=== PATIENT | female | born 1960 | race Caucasian/White ===

== ENCOUNTER 2018-05-01 01:47 | Emergency (ER) | payer MEDICAID, OTHER ==
[~2018-05-01] VITALS: Ht 165.1 cm; Wt 77.1 kg
[2018-05-01 01:51] VITALS: BP 102/66
--- NOTE | 2018-05-01 01:55 | NUR ---
PT TAKEN TO BED 3
--- NOTE | 2018-05-01 02:05 | NUR ---
BIB SELF C/O LEFT SHOULDER PAIN. PT STATES TO INJURING HER LEFT SHOULDER 2 YEARS AGO AT WORK, IS HAVING SURGERY 05/10/18, PASSIVE ROM. SHARP PAIN 12/15 X2 DAYS. --RIGHT SHOULDER: NO REDNESS OR SWELLING NOTED, SLIGHT DEFORMITY NOTED. --RADIAL PULSES +3 EQUAL BILATERALLY. DENIES TRAUMA OR FALL. DENIES LOC, SOB, OR CP. --SKIN WARM, DRY AND INTACT. --BOWEL SOUNDS ACTIVE X4 QUAD. DENIES N/V/D. LUNG SOUND CLEAR THROUGH OUT. PMH: DENIES RX: DENIES
[2018-05-01] MEDS ORDERED: DIAZEPAM 5 MG TAB PO ONE (02:45)
[2018-05-01] MEDS ORDERED: KETOROLAC 30 MG/ML VIAL IM ONE (02:45)
[2018-05-01 05:10] VITALS: BP 96/57
--- NOTE | 2018-05-01 05:10 | NUR ---
Patient discharged with v/s stable. Written and verbal after care instructions given and explained. Patient alert, oriented and verbalized understanding of instructions. Ambulatory with steady gait. All questions addressed prior to discharge. ID band removed. Patient advised to follow up with PMD. Rx of Naprosyn and Harrison given. Patient educated on indication of medication including possible reaction and side effects. Opportunity to ask questions provided and answered.
== END 2018-05-01 05:10 | disposition home or self-care (01) ==
LOC: MED 01:47
DX: M25.512 Pain in left shoulder (principal)
CPT/HCPCS: 96372; 99283; J1885

== ENCOUNTER 2018-05-08 19:32 | Emergency (ER) | payer OTHER ==
[~2018-05-08] VITALS: Ht 165.1 cm; Wt 83.6 kg
[2018-05-08 20:00] VITALS: BP 112/67
--- NOTE | 2018-05-08 20:06 | NUR ---
PT AMBULATED TO THE [facility] AND THEN SENT TO [facility]
[2018-05-08 20:41] LABS: BASOPHILS % (AUTO) 0.2 % (0.0-2.0); EOSINOPHILS # (AUTO) 0.3 K/uL (0-0.4); EOSINOPHILS % (AUTO) 3.2 % (0.0-4.0); HEMATOCRIT 37.2 % (36-48); HEMOGLOBIN 12.2 g/dL (12.0-16.0); LYMPHOCYTES % (AUTO) 35.9 % (20.5-51.1); MEAN CORPUSCULAR HEMOGLOBIN 29 pg (27-31); MEAN CORPUSCULAR HGB CONC 33 g/dL (33-37); MEAN CORPUSCULAR VOLUME 88.3 fL (80-94); MONOCYTES # (AUTO) 0.8 K/uL (0.8-1.0); MONOCYTES % (AUTO) 9.4 % (1.7-9.3); NEUTROPHILS # (AUTO) 4.3 K/uL (1.8-7.7); NEUTROPHILS % (AUTO) 51.3 % (42.2-75.2); PLATELET COUNT (AUTO) 331 K/uL (140-450); RED BLOOD CELL COUNT(AUTO) 4.21 MIL/uL (4.20-5.40); RED CELL DISTRIBUTION WIDTH 13.2 % (11.6-13.7); WHITE BLOOD COUNT (AUTO) 8.4 K/uL (4.8-10.8)
[2018-05-08 20:51] LABS: ANION GAP 8.3 (8-16); CARBON DIOXIDE 32.8 mmol/L (21-32); CREATININE 0.8 mg/dL (0.6-1.3); POTASSIUM 4.1 mmol/L (3.5-5.1)
[2018-05-08 20:57] LABS: ALBUMIN 3.8 g/dL (3.4-5.0); TOTAL BILIRUBIN 0.1 mg/dL (0.0-1.0)
--- NOTE | 2018-05-08 22:36 | NUR ---
PATIENT AMBULATED TO ER BED 4.
--- NOTE | 2018-05-08 22:45 | NUR ---
PATIENT PRESENTS TO ED WITH PT C/O PAIN IN THE ABDOMEN X 6 DAY. NOW HAS PAIN RLQ ABDOMEN AND NUMBING OF THE LEG. PT IS AMBULATORY NO PREVIOUS MEDICAL HX NKA DENIES N/V/D OR FEVER PAIN STARTED AFTER [place] PER PT .DENIES N/V/D; SKIN IS PINK/WARM/DRY; AAOX4 WITH EVEN AND STEADY GAIT; LUNGS CLEAR BL; HR EVEN AND REGULAR; PT DENIES ANY FEVER, CP, SOB, OR COUGH AT THIS TIME; PATIENT STATES PAIN OF 5/10 AT THIS TIME; VSS; PATIENT POSITIONED FOR COMFORT; HOB ELEVATED; BEDRAILS UP X2; BED DOWN. ER MD MADE AWARE OF PT STATUS.
[2018-05-09] MEDS ORDERED: KETOROLAC 60 MG/2 ML VIAL IM ONE (00:40)
--- NOTE | 2018-05-09 00:58 | NUR ---
Patient discharged with v/s stable. Written and verbal after care instructions given and explained. Patient alert, oriented and verbalized understanding of instructions. Ambulatory with steady gait. All questions addressed prior to discharge. ID band removed. Patient advised to follow up with PMD. Rx of norco, miralx and motrin given. Patient educated on indication of medication including possible reaction and side effects. Opportunity to ask questions provided and answered.
[2018-05-09 01:00] VITALS: BP 122/66
== END 2018-05-09 00:58 | disposition home or self-care (01) ==
LOC: MED 19:32
DX: K59.00 Constipation, unspecified (principal)
CPT/HCPCS: 36415; 74176; 80053; 81002; 81025; 83690; 85025; 96372; 99284; J1885

== ENCOUNTER 2021-07-17 13:26 | Emergency (ER) | payer OTHER ==
[~2021-07-17] VITALS: Ht 165.1 cm; Wt 77.1 kg
[2021-07-17 13:37] VITALS: BP 139/71
--- NOTE | 2021-07-17 13:40 | NUR ---
PT W/C ASSISTED TO BED 4.
--- NOTE | 2021-07-17 13:40 | NUR ---
Patient being evaluated by JESÚS BUCHANAN at bedside.
[2021-07-17] MEDS ORDERED: ACETAMINOPHEN 325 MG TAB PO ONE (13:45)
[2021-07-17] MEDS ORDERED: LIDOCAINE MPF 1% 10 MG/ML VIAL INJ ONE (13:45)
--- NOTE | 2021-07-17 14:42 | NUR ---
60 y/o female, pt states 40 minutes prior to arrival, pt was walking turned and felt extremely dizzy. pt states she fell and hit her head, denies loc, blurry vision, or syncope. pt denies any use of blood thinners. pt has posterior partial thickness head lac. denies nausea, vomiting, diarrhea. skin is pink/warm/dry. a&o x4 with even and steady gait. lungs clear bl, heart rate even and regular. pt states pain is 10/10 at this time. vss. patient positioned for comfort. hob elevated. bed down. ermd made aware of pt. pmh: gallbladder removal, hysterectomy nka
--- NOTE | 2021-07-17 14:45 | NUR ---
Patient taken for CT scan via wheelchair.
[2021-07-17] MEDS ORDERED: ACET-10509 PO (15:27)
--- NOTE | 2021-07-17 15:43 | NUR ---
Patient discharged with v/s stable. Written and verbal after care instructions ABOUT HEAD INJURY, LACERATION CARE, AND DIZZINESS given and explained. Patient alert, oriented and verbalized understanding of instructions. Ambulatory with steady gait. All questions addressed prior to discharge. ID band removed. Patient advised to follow up with PMD. Rx of TYLENOL EXTRA STRENGTH given. Patient educated on indication of medication including possible reaction and side effects. Opportunity to ask questions provided and answered.
== END 2021-07-17 15:43 | disposition home or self-care (01) ==
LOC: MED 13:26
DX: S01.01XA Laceration without foreign body of scalp, initial encounter (principal); W18.30XA Fall on same level, unspecified, initial encounter; Y93.89 Activity, other specified; Y92.098 Other place in other non-institutional residence as the place of occurrence of the external cause; Y99.8 Other external cause status
CPT/HCPCS: 12001; 70450; 90471; 90715; 99284; J2001

== ENCOUNTER 2023-05-03 01:45 | Emergency (ER) | payer OTHER ==
[~2023-05-03] VITALS: Ht 165.1 cm; Wt 72.6 kg
[~2023-05-03 01:45] MED LIST: ACET-10509 PO
[2023-05-03 01:52] VITALS: BP 105/69; PULSE 78; RESP 20; TEMP 98.1; O2SAT 98
[2023-05-03] MEDS ORDERED: IBUP-2213 PO (02:14)
[2023-05-03] MEDS ORDERED: PRED20TA5 PO (02:14)
[2023-05-03 02:22] VITALS: BP 105/69; PULSE 78; RESP 16; TEMP 98.2; O2SAT 98
== END 2023-05-03 02:22 | disposition home or self-care (01) ==
LOC: MED 01:45
DX: J02.9 Acute pharyngitis, unspecified (principal); Z90.710 Acquired absence of both cervix and uterus; Z79.899 Other long term (current) drug therapy
CPT/HCPCS: 99283

== ENCOUNTER 2023-10-05 21:28 | Emergency (ER) | payer OTHER ==
[~2023-10-05] VITALS: Ht 165.1 cm; Wt 77.1 kg
[~2023-10-05 21:28] MED LIST changes: +IBUP-2213 PO; +PRED20TA5 PO
[2023-10-05 21:39] VITALS: BP 138/88; PULSE 88; RESP 18; TEMP 98; O2SAT 99
[2023-10-05 22:20] VITALS: BP 138/88; PULSE 88; RESP 18; TEMP 98; O2SAT 97
[2023-10-05] MEDS ORDERED: NAPR-337 PO (22:25)
[2023-10-05] MEDS: IBUPROFEN 600 MG TAB PO ONE (23:01)
== END 2023-10-05 23:08 | disposition home or self-care (01) ==
LOC: MED 21:28
DX: S83.91XA Sprain of unspecified site of right knee, initial encounter (principal); Z79.899 Other long term (current) drug therapy; W18.39XA Other fall on same level, initial encounter; Y92.89 Other specified places as the place of occurrence of the external cause; Y93.89 Activity, other specified; Y99.8 Other external cause status
CPT/HCPCS: 73562; 99283